=== PATIENT | female | born 2000 | race Hispanic/Latino ===

== ENCOUNTER 2021-09-29 11:41 | Outpatient (CLI) | payer MEDICAID ==
[2021-09-29 23:49] LABS: SARS-CoV-2 PCR by NAA Not Detected (NotDetected)
== END 2021-09-29 11:42 | disposition home or self-care (01) ==
LOC: CSHLAB 11:41
PROVIDERS: ATTEND Obstetrics & Gynecology
DX: Z01.812 Encounter for preprocedural laboratory examination (principal); Z20.822 Contact with and (suspected) exposure to COVID-19
CPT/HCPCS: U0003; U0005

== ENCOUNTER 2021-10-02 13:22 | Day surgery (SDC) | payer MEDICAID ==
[2021-10-02 14:03] VITALS: BMI 27.4
== END 2021-10-02 15:25 | disposition home or self-care (01) ==
LOC: CSHLD/OP 13:22
PROVIDERS: ATTEND Obstetrics & Gynecology
DX: O47.1 False labor at or after 37 completed weeks of gestation (principal); O24.410 Gestational diabetes mellitus in pregnancy, diet controlled; Z3A.39 39 weeks gestation of pregnancy
CPT/HCPCS: 99283

== ENCOUNTER 2021-10-02 21:20 | Inpatient (IN) | payer MEDICAID, OTHER, SELFPAY ==
[~2021-10-02 21:20] MED LIST: Bupivacaine 0.25% HCL 30 ML VIAL ONE
[2021-10-02 21:42] VITALS: BMI 27.6
[2021-10-02] MEDS ORDERED: Ondansetron PF 4 MG/2 ML Vial IVP PRN ×2 (21:47→22:59)
[2021-10-02] MEDS ORDERED: Carboprost 250 MCG/ML AMP IM PRN (21:47)
[2021-10-02] MEDS ORDERED: Promethazine HCl 25 MG/ML VIAL IM PRN ×2 (21:47→22:59)
[2021-10-02] MEDS ORDERED: hydrALAZINE 20 MG/ML VIAL SLOW IVP PRN (21:47)
[2021-10-02] MEDS ORDERED: Methylergonovine 0.2 MG/ML VIAL IM PRN (21:47)
[2021-10-02] MEDS ORDERED: Misoprostol 200 MCG TAB PR PRN (21:47)
[2021-10-02] MEDS ORDERED: Diphenoxylate HCl/Atropine Tablet PO PRN (21:47)
[2021-10-02] MEDS ORDERED: Lidocaine 1% (PF) 30 ML VIAL SC PRN (21:47)
[2021-10-02] MEDS ORDERED: Lactated Ringer's 1,000 ML IV SCH (22:00)
[2021-10-02] MEDS ORDERED: NS w/ Oxytocin 30 units 500 ML IV SCH (22:00)
[2021-10-02 22:11] LABS: Hemoglobin 11.4 g/dL (12.0-15.5); Mean Corpuscular HGB CONC 34.5 g/dL (32.0-36.0); Mean Corpuscular Hemoglobin 29.8 pg (27.0-33.0); Mean Corpuscular Volume 86.4 fl (81.6-98.3); Mean Platelet Volume 10.7 fl (7.4-10.4); Platelet Count 166 10x3/uL (150-450); RBC Distribution Width 13.7 % (11.5-14.5); Red Blood Cell (RBC) Count 3.82 10x6/uL (3.90-5.03); White Blood Cell (WBC) Count 10.7 10x3/uL (3.5-10.5)
[2021-10-02] MEDS ORDERED: Fentanyl 2 mcg/Bup 0.1% Cadd 100 ML ONE (22:15)
[2021-10-02 22:42] LABS: Hep B Surf Ag Non-Reactive S/CO (NonReactive); Syphilis Antibody Nonreactive (Nonreactive); Syphilis Antibody Index 0.02 S/CO (<1.00 Non-Reactive)
[2021-10-02 22:45] LABS: HBSAg Index 0.24 S/CO (0-0.99)
[2021-10-02] MEDS ORDERED: Lactated Ringer's 500 ML IV PRN (22:59)
[2021-10-02] MEDS ORDERED: Naloxone HCl 0.4 mg/ml Vial IVP PRN ×2 (22:59)
[2021-10-02] MEDS ORDERED: ePHEDrine Sulfate 50 MG/10 ML VIAL SLOW IVP PRN (22:59)
[2021-10-02] MEDS ORDERED: Hydrocerin (Eucerin) Cream 120 gm Jar TOP PRN (22:59)
[2021-10-02] MEDS ORDERED: Acetaminophen 325 MG TAB PO PRN (22:59)
[2021-10-02] MEDS ORDERED: diphenhydrAMINE 50 MG/ML VIAL IVP PRN (22:59)
[2021-10-02] MEDS ORDERED: Communication Order-Pharmacy FS SCH (23:00)
[2021-10-02] MEDS ORDERED: Fentanyl 2 mcg/Bupivacaine 0.1% Cassette 100 ML EPIDURAL SCH (23:00)
[2021-10-03] MEDS ORDERED: diphenhydrAMINE 25 MG CAP PO PRN (07:00)
[2021-10-03] MEDS ORDERED: Promethazine HCl 25 MG/ML VIAL IM PRN (07:00)
[2021-10-03] MEDS ORDERED: Preparation H Ointment 28 GM TUBE PR PRN (07:00)
[2021-10-03] MEDS ORDERED: Milk Of Magnesia 30 ML UDCUP PO PRN (07:00)
[2021-10-03] MEDS ORDERED: Methylergonovine 0.2 MG/ML VIAL IM PRN (07:00)
[2021-10-03] MEDS ORDERED: Misoprostol 200 MCG TAB VAG PRN (07:00)
[2021-10-03] MEDS ORDERED: Bisacodyl 10 MG SUPP PR PRN (07:00)
[2021-10-03] MEDS ORDERED: Ondansetron PF 4 MG/2 ML Vial IVP PRN (07:00)
[2021-10-03] MEDS ORDERED: NS w/ Oxytocin 30 units 500 ML IV SCH (07:00)
[2021-10-03] MEDS ORDERED: hydrALAZINE 20 MG/ML VIAL SLOW IVP PRN (07:00)
[2021-10-03] MEDS: Ferrous Sulfate 325 MG TAB PO SCH ×2 (08:17→16:35)
[2021-10-03] MEDS: Docusate Calcium (SURFAK) 240 MG CAP PO SCH ×2 (08:57→21:40)
[2021-10-03] MEDS: Prenatal Vitamin 1 TAB PO SCH (08:57)
[2021-10-03] MEDS: Ibuprofen 800 MG TAB PO SCH ×2 (14:09→21:40)
[2021-10-04] MEDS: Ibuprofen 800 MG TAB PO SCH ×3 (05:52→21:35)
[2021-10-04] MEDS ORDERED: Boostrix 0.5 ML (Tdap) VIAL IM ONE (07:00)
[2021-10-04] MEDS: Ferrous Sulfate 325 MG TAB PO SCH ×2 (07:31→14:10)
[2021-10-04] MEDS: Prenatal Vitamin 1 TAB PO SCH (08:40)
[2021-10-04] MEDS: Docusate Calcium (SURFAK) 240 MG CAP PO SCH ×2 (08:40→21:35)
[2021-10-05] MEDS: Ibuprofen 800 MG TAB PO SCH (06:16)
[2021-10-05 08:15] VITALS: BP 102/61; TEMP 98.2
[2021-10-05] MEDS: Ferrous Sulfate 325 MG TAB PO SCH (08:20)
[2021-10-05] MEDS: Prenatal Vitamin 1 TAB PO SCH (09:31)
[2021-10-05] MEDS: Docusate Calcium (SURFAK) 240 MG CAP PO SCH (09:31)
== END 2021-10-05 11:50 | disposition home or self-care (01) | DRG 807 ==
LOC: CSHLD/OP 21:20 → CSHLD 21:21 → CSHPED 10-03 08:00
PROVIDERS: ADMIT Obstetrics & Gynecology; ATTEND Obstetrics & Gynecology
PROC: 10E0XZZ Delivery of Products of Conception, External Approach (ICD-10-PCS; principal; 2021-10-03)
PROC: 0HQ9XZZ Repair Perineum Skin, External Approach (ICD-10-PCS; 2021-10-03)
PROC: 0UQMXZZ Repair Vulva, External Approach (ICD-10-PCS; 2021-10-03)
DX: O69.81X0 Labor and delivery complicated by cord around neck, without compression, not applicable or unspecified (principal); O24.429 Gestational diabetes mellitus in childbirth, unspecified control; O99.02 Anemia complicating childbirth; D64.9 Anemia, unspecified; O99.344 Other mental disorders complicating childbirth; F32.A Depression, unspecified; O71.82 Other specified trauma to perineum and vulva; O70.0 First degree perineal laceration during delivery; Z37.0 Single live birth; Z3A.39 39 weeks gestation of pregnancy; Z90.49 Acquired absence of other specified parts of digestive tract
CPT/HCPCS: 36415; 51702; 85027; 86780; 86850; 86900; 86901; 87340; 99285; J2001; J2590; S0020

== ENCOUNTER 2021-10-06 22:20 | Emergency (ER) | payer MEDICAID, OTHER ==
[2021-10-06 22:55] LABS: Bilirubin Neg (Negative); Blood, Urine 150 (Negative); Clarity Slightly Cloudy (Clear); Glucose, Urine (Dipstick) Normal (Negative); Ketone, Urine Negative (Negative); Leukocyte 100 (Negative); Nitrite Negative (Negative); Protein, Urine (Dipstick) 15 mg/dl (Neg-Trace); Urobilinogen Normal mg/dL (Less than 2); pH, Urine 6.5 (5.0-9.0)
[2021-10-06 23:05] LABS: Bacteria/HPF Rare-Few HPF (None Seen); Mucous/LPF 1+ LPF (<2+); Renal Epithelial 0-3 HPF (None Seen); Squamous Epithelial 0-3 HPF (0-3)
== END 2021-10-07 00:12 | disposition home or self-care (01) ==
LOC: CSHERS 22:20
DX: N39.0 Urinary tract infection, site not specified (principal)
CPT/HCPCS: 81003; 81015; 87086; 99283